=== PATIENT | male | born 1960 | race Caucasian/White ===

== ENCOUNTER → 2018-05-30 | Outpatient (CLI) | payer BC | LOC: BMCIMAGING 14:20 | PROVIDERS: ATTEND Physician Assistant | DX: M17.0 Bilateral primary osteoarthritis of knee (principal) ==

== ENCOUNTER 2019-01-28 07:23 | Day surgery (SDC) | payer BC, OTHER | END 2019-01-28 13:39 | disposition home or self-care (01) | LOC: FIMAGING 07:23 ==

== ENCOUNTER → 2019-01-29 | Outpatient (CLI) | payer BC, OTHER | LOC: FCPNEURO 08:33 ==